=== PATIENT | female | born 1930 | race Caucasian/White ===

== ENCOUNTER → 2017-01-25 | Outpatient (CLI) | payer BC ==
[~2017-01-25] MED LIST: CALCTAB5 PO; CHOL100027 PO; LATA0.009 OPL; MONT1TAB3 PO; MULTTAB58 PO
--- NOTE | 2017-01-25 13:32 | MAMMOGRAPHY REPORT ---
BILATERAL DIGITAL SCREENING MAMMOGRAM WITH CAD: 01/25/2017 CLINICAL HISTORY: Routine screening. Patient has no complaints. TECHNIQUE: Bilateral CC and MLO views were obtained. Current study was also evaluated with a Compute r Aided Detection (CAD) system. COMPARISON: Comparison is made to exams dated: 01/23/2016 mammogram, 01/21/2015 mammogram, 01/09/2014 ma mmogram, 01/08/2013 mammogram, 01/06/2012 mammogram, and 11/18/2010 ultrasound - [facility] ter. BREAST COMPOSITION: The tissue of both breasts is heterogeneously dense, which may obscure small mas ses. FINDINGS: The parenchymal pattern is unchanged. There is stable asymmetry in the superior left chris st on the MLO view. There are mild vascular calcifications and a few benign rim calcifications in th e breasts. No developing mass, architectural distortion or cluster of suspicious microcalcifications is seen. IMPRESSION: ACR BI-RADS CATEGORY 2: BENIGN There is no mammographic evidence of malignancy. A 1 year screening mammogram is recommended. The pa tient will receive written notification of the results. Approximately 10% of breast cancers are not detected with mammography. A negative mammographic report should not delay biopsy if a clinically suggestive mass is present. Penny Fairchild M.D. ay/:01/25/2017 12:40:24 Educational Sign Language Interpreter: Lauren SANTANA(R)(M), [facility] letter sent: Normal 1/2 BI-RADS Code: ACR BI-RADS Category 2: Benign
== END | disposition home or self-care (01) ==
LOC: C.MAMM 09:25
PROVIDERS: ATTEND Obstetrics & Gynecology
DX: Z12.31 Encounter for screening mammogram for malignant neoplasm of breast (principal)

== ENCOUNTER → 2018-01-26 | Outpatient (CLI) | payer BC ==
--- NOTE | 2018-01-26 16:00 | MAMMOGRAPHY REPORT ---
BILATERAL DIGITAL SCREENING MAMMOGRAM TOMOSYNTHESIS WITH CAD: 01/26/2018 CLINICAL HISTORY: Routine screening. The patient has no current complaints. TECHNIQUE: The study was acquired using full field digital technology and interpreted from soft copy. Breast tomosynthesis in addition to standard 2D mammography was performed. Current study was also ev aluated with a Computer Aided Detection (CAD) system. COMPARISON: Comparison is made to exams dated: 01/25/2017 mammogram, 01/23/2016 mammogram, 01/21/2015 m ammogram, 01/09/2014 mammogram, 01/08/2013 mammogram, and 01/06/2012 mammogram - [facility] er. BREAST COMPOSITION: The tissue of both breasts is heterogeneously dense, which may obscure small mass es. FINDINGS: No suspicious masses, calcifications, or areas of architectural distortion are noted in either breast . There has been no significant interval change compared to prior exams. Scattered bilateral benign-a ppearing calcifications are not significantly changed. IMPRESSION: ACR BI-RADS CATEGORY 2: BENIGN There is no mammographic evidence of malignancy. A 1 year screening mammogram is recommended.( 019) The patient will receive written notification of the results. Some breast cancers are not detected with mammography. A negative mammographic report should not fernando y biopsy if a clinically suggestive mass is present. Priyanka Dumont M.D. ah/:01/26/2018 14:52:08 Sample Builder: RT Osvaldo(Buffy)(M), [facility] letter sent: Normal 1/2 BI-RADS Code: ACR BI-RADS Category 2: Benign
== END | disposition home or self-care (01) ==
LOC: C.MAMM 11:07
PROVIDERS: ATTEND Obstetrics & Gynecology
DX: Z12.31 Encounter for screening mammogram for malignant neoplasm of breast (principal)

== ENCOUNTER 2019-07-11 08:52 | Observation (INO) ==
[2019-07-11] MEDS ORDERED: SODIUM CHLORIDE 0.9% 1000ML 1,000 ML IV SCH (09:30)
[2019-07-11 09:53] LABS: Basophils # (auto) 0.02 K/uL (0-0.2); Basophils % (auto) 0.2 %; Eosinophils # (auto) 0.07 K/uL (0-0.5); Eosinophils % (auto) 0.8 %; Hematocrit (blood only) 40.7 % (37-47); Hemoglobin 13.1 g/dL (12.0-16.0); Immature Granulocytes # (auto) 0.03 K/uL (0.00-0.02); Immature Granulocytes % (auto) 0.3 %; Lymphocytes # (auto) 0.83 K/uL (1.2-3.4); Lymphocytes % (auto) 9.3 %; Mean Corpuscular Hemoglobin 29.9 pg (25-34); Mean Corpuscular Hgb Conc 32.2 g/dL (32-36); Mean Corpuscular Volume 92.9 fL (80-100); Mean Platelet Volume 10.3 fL (7.4-10.4); Monocytes # (auto) 0.92 K/uL (0.11-0.59); Monocytes % (auto) 10.3 %; Neutrophils % (auto) 79.1 %; Platelet Count 193 K/uL (130-400); RDW Coefficient of Variation 13.5 % (11.5-14.5); RDW Standard Deviation 46.2 fL (36.4-46.3); Red Blood Count 4.38 M/uL (4.2-5.4); White Blood Count 8.97 K/uL (4.8-10.8)
--- NOTE | 2019-07-11 10:01 | XRay Report ---
XR chest 1V portable CLINICAL HISTORY: 88 years-old Female presenting with weakness. TECHNIQUE: Portable upright AP view of the chest was obtained. COMPARISON: 07/06/2019. FINDINGS: Implanted device projects over the cardiac silhouette. Atherosclerosis of the aortic arch. Cardiac si lhouette borderline enlarged. Trace left pleural effusion and left basilar opacity. No pneumothorax. Fractures of the left seventh through 10th ribs are not as well appreciated on this radiograph. Osteo penia may be present. Upper abdomen normal. IMPRESSION: 1. Left basilar atelectasis and trace left effusion suspected. 2. Underlying left rib fractures better demonstrated on prior rib series. ACT 112: Negative or not required by law. Electronically signed by: Brent Sinclair M.D. 07/11/2019 10:00 AM
[2019-07-11 10:11] LABS: Albumin Level 3.3 gm/dl (3.4-5.0); Calcium 9.2 mg/dl (8.5-10.1); Creatinine Clr Calc Pharmacy 34.3 ml/min; Est GFR (African American) 55.2; Est GFR (Non-African American) 47.6; Potassium 4.3 mmol/L (3.5-5.1)
[2019-07-11 10:21] LABS: Albumin Globulin Ratio 0.9 (0.9-2); Bilirubin,Total 0.5 mg/dl (0.2-1); Globulin 3.5 gm/dl (2.5-4.0); Thyroid Stimulating Hormone 4.18 uIu/ml (0.300-4.500); Total Protein 6.8 gm/dl (6.4-8.2)
--- NOTE | 2019-07-11 10:24 | Electrocardiogram Report ---
Test Reason : Blood Pressure : / mmHG Vent. Rate : 066 BPM Atrial Rate : 066 BPM P-R Int : 234 ms QRS Dur : 118 ms QT Int : 436 ms P-R-T Axes : 079 -41 095 degrees QTc Int : 457 ms Sinus rhythm with 1st degree A-V block with frequent Premature ventricular complexes Possible Left atrial enlargement Left axis deviation Possible Anterior infarct , age undetermined Abnormal ECG No previous ECGs available Confirmed by Tod Samuels ([id number]) on 07/11/2019 10:24:24 AM Referred By: REFERRED SELF Confirmed By:Tod Samuels
[2019-07-11] MEDS ORDERED: SODIUM CHLORIDE 0.9% 1000ML 500 ML IV ONE (10:40)
[2019-07-11] MEDS ORDERED: cefTRIAXone SODIUM 2,000 MG/70 ML BAG IV STA (11:45)
[2019-07-11 11:50] LABS: Appearance Urine Clear (Clear); Bilirubin Urine Negative (Negative); Blood Urine Negative (Negative); Color Urine Yellow; Glucose Urine UA Negative (Negative); Ketones Urine Negative (Negative); Leukocyte Esterase Urine Negative (Negative); Nitrite Urine Negative (Negative); Protein Urine Negative (Negative); Specific Gravity Urine 1.009 (1.000-1.030); Urobilinogen Urine Negative (Negative)
--- NOTE | 2019-07-11 14:24 | Emergency Department Note ---
Entered by Miguel Arias acting as a scribe for Quentin Olivares MD History of Present Illness General Chief complaint: Syncope (Near Syncope) Source: patient History of Present Illness Provider complaint: Near syncope Onset (ago): hour(s) (Just prior to arrival) Location: head Pain Consistency: + other (Episode) Maximum Pain Intensity: 0 Relieved By: + none Associated symptoms: + denies other symptoms (LOC) and + other (Lightheadedness, Dizzy) The patient is an 88 year old female who presents to the Emergency Room after having a near syncopal episode earlier this morning shortly before arrival. The patient reports that she was in the ED about 5 days ago with a rib fracture due to a fall and was prescribed Tylenol #3. The patient states she took 3 of the Tylenol today and about an hour later she started feeling lightheaded and dizzy. The patient adds that her helped her down into her chair so she never fell. The patient was still uneasy in the chair and when EMS arrived her blood pressure was 69/34 with a pulse in the 50s. Currently the patient states she is no longer lightheaded or dizzy. The patient also mentioned that she had a loop recorder placed recently, but left it home. Home Medications Home Medications Medication Instructions Recorded Confirmed Type metoprolol succinate 37.5 mg PO QAM 07/05/19 07/11/19 History acetaminophen-codeine 1 tab PO TID PRN #28 tab 07/06/19 07/11/19 Rx [Tylenol-Codeine #3] bimatoprost [Lumigan] 1 drp OPB HS 07/06/19 07/11/19 History Allergies Allergy/AdvReac Type Severity Reaction Status Date / Time No Known Allergies Allergy Unverified 07/11/19 09:56 Past Med/Surg History Medical History Acute right eye pain Fracture of rib (Acute) Family History Other Family history non-contributory Social History Preferred Language: Nepali Communication Ability: Effective Assistant Director Of Residence Life Required: No Beliefs That Will Affect Care: None Current Living Situation: Spouse Feels Safe at Home: Yes Smoking Status: Former smoker Second Hand Exposure: No ; Hx Alcohol Use: Yes Hx Substance Use: No Review of Systems See HPI for pertinent positives & negatives. and A total of 10 systems reviewed and were otherwise negative Physical Exam Vital Signs Vital Signs - 24 hr 07/11/19 11:28 07/11/19 12:08 07/11/19 14:02 Pulse Rate - Lying 76 Pulse Rate - Sitting 78 Pulse Rate [Apical] 72 76 Respiratory Rate 16 16 Blood Pressure - Lying 113/65 Blood Pressure - Sitting 149/70 H Blood Pressure [Right Arm] 136/75 148/40 H Blood Pressure Mean [Right Arm] 95 76 Pulse Oximetry 97 97 GENERAL: Awake, alert, well-appearing, in no distress HENT: Normocephalic, atraumatic. Oropharynx unremarkable. EYES: Normal conjunctiva. Sclera non-icteric. NECK: Supple. No nuchal rigidity. FROM. No masses. RESPIRATORY: Clear to auscultation. No wheezes. No rales. Normal respiratory effort. CARDIAC: Normal rate. Normal rhythm. No murmurs. No rubs. Extremities warm and well perfused. Pulses equal. No JVD. GI: Soft, non-distended. No tenderness to palpation. No rebound or guarding. No masses. RECTAL: Deferred. MUSCULOSKELETAL: Atraumatic. Chest examination reveals no tenderness. The back is symmetrical on inspection without obvious abnormality. There is no CVA tenderness to palpation. No joint edema. LOWER EXTREMITIES: Calves are equal size bilaterally and non-tender. No edema. No discoloration. NEURO: Normal sensorium. No sensory or motor deficits noted. Course Course 0900: Past medical records reviewed. The patient was evaluated in room A04B, and a complete history and physical examination were performed. 1020: I reevaluated the patient and she is resting in bed. The patient's family member went home to get the loop recorder and it has been sent to [employer] for interrogation. 1206: I spoke to Dr. Olvera [facility] Hospitalist about the patient's case and she has agreed to accept her for further evaluation. Consultations Consultation #1: I spoke to Dr. Wade Prince [facility] Hospitalist about the patient's case and she has agreed to accept her for further evaluation. Time: 12:06 Administered Medications Acetaminophen/Codeine Phosphate (Tylenol W/Codeine #3) 1 tab PO TID PRN PRN Reason: pain Stop: 08/10/19 16:03 Last Admin: 07/11/19 20:21 Dose: 1 tab Documented by: [id number] Bimatoprost (Lumigan 0.01%) 1 drops OPB HS [facility] Stop: 08/10/19 20:59 Last Admin: 07/11/19 20:17 Dose: 1 drops Documented by: [id number] Metoprolol Succinate (Toprol Xl) 37.5 mg PO QAM BLAINE Stop: 08/11/19 08:59 Last Admin: 07/12/19 07:39 Dose: 37.5 mg Documented by: [id number] Discontinued Medications Sodium Chloride (Nss 1000ml) 1,000 mls @ 999 mls/hr IV .Q1H1M BLAINE Stop: 07/11/19 10:30 Last Infusion: 07/11/19 11:07 Dose: 0 mls/hr Documented by: [id number] Admin: 07/11/19 10:06 Dose: 999 mls/hr Documented by: [id number] Sodium Chloride (Nss 1000ml) 500 mls @ 999 mls/hr IV .Q31M ONE Stop: 07/11/19 11:10 Last Infusion: 07/11/19 11:52 Dose: 0 mls/hr Documented by: [id number] Admin: 07/11/19 11:23 Dose: 999 mls/hr Documented by: [id number] Ceftriaxone Sodium (Rocephin) 2,000 mg in 70 mls @ 140 mls/hr IV NOW STA Stop: 07/11/19 12:14 Last Infusion: 07/11/19 12:20 Dose: 0 mls/hr Documented by: [id number] Admin: 07/11/19 11:52 Dose: 140 mls/hr Documented by: [id number] Medical Decision Making Differential Diagnosis Differential diagnosis includes etiologies such as vasovagal event, infection, hypoglycemia, electrolyte abnormalities, cardiac sources, intracerebral event, toxicologic, neurologic, as well as others were entertained. Medical Records Attestation: I reviewed the patient's medical records. Home Medications Current Medication List: was personally reviewed by me Laboratory Data Attestation: I reviewed the patient's lab results. Result diagrams: 07/12/19 07:21 07/12/19 07:21 Lab Results 07/11/19 07/11/19 07/11/19 Range/Units 09:39 09:39 09:39 WBC 8.97 (4.8-10.8) K/uL RBC 4.38 (4.2-5.4) M/uL Hgb 13.1 (12.0-16.0) g/dL Hct 40.7 (37-47) % MCV 92.9 (80-100) fL MCH 29.9 (25-34) pg MCHC 32.2 (32-36) g/dL RDW Std Deviation 46.2 (36.4-46.3) fL RDW Coeff of Rafaela 13.5 (11.5-14.5) % Plt Count 193 (130-400) K/uL MPV 10.3 (7.4-10.4) fL Immature Gran % (Auto) 0.3 % Neut % (Auto) 79.1 % Lymph % (Auto) 9.3 % [place] % (Auto) 10.3 % Eos % (Auto) 0.8 % Baso % (Auto) 0.2 % Immature Gran # (Auto) 0.03 H (0.00-0.02) K/uL Neut # (Auto) 7.10 H (1.4-6.5) K/uL Lymph # (Auto) 0.83 L (1.2-3.4) K/uL [place] # (Auto) 0.92 H (0.11-0.59) K/uL Eos # (Auto) 0.07 (0-0.5) K/uL Baso # (Auto) 0.02 (0-0.2) K/uL Sodium 138 (136-145) mmol/L Potassium 4.3 (3.5-5.1) mmol/L Chloride 105 (98-107) mmol/L Carbon Dioxide 28 (21-32) mmol/L Anion Gap 5.0 (3-11) BUN 21 H (7-18) mg/dl Creatinine 1.04 (0.6-1.2) mg/dl Est Cr Clr Drug Dosing 34.3 ml/min Est GFR ( Amer) 55.2 Est GFR (Non-Af Amer) 47.6 BUN/Creatinine Ratio 20.0 (10-20) Glucose 110 H (70-99) mg/dl Calcium 9.2 (8.5-10.1) mg/dl Total Bilirubin 0.5 (0.2-1) mg/dl AST 14 L (15-37) U/L ALT 17 (12-78) U/L Alkaline Phosphatase 65 (45-117) U/L Total Creatine Kinase 46 (26-192) U/L Troponin I < 0.015 (0-0.045) ng/ml NT-Pro-B Natriuret Pep (0-1800) pg/ml Total Protein 6.8 (6.4-8.2) gm/dl Albumin 3.3 L (3.4-5.0) gm/dl Globulin 3.5 (2.5-4.0) gm/dl Albumin/Globulin Ratio 0.9 (0.9-2) TSH 4.180 (0.300-4.500) uIu/ml Urine Color Urine Appearance (Clear) Urine pH (4.5-7.5) Ur Specific [place] (1.000-1.030) Urine Protein (Negative) Urine Glucose (UA) (Negative) Urine Ketones (Negative) Urine Blood (Negative) Urine Nitrite (Negative) Urine Bilirubin (Negative) Urine Urobilinogen (Negative) Ur Leukocyte Esterase (Negative) 07/11/19 07/11/19 Range/Units 09:39 11:42 WBC (4.8-10.8) K/uL RBC (4.2-5.4) M/uL Hgb (12.0-16.0) g/dL Hct (37-47) % MCV (80-100) fL MCH (25-34) pg MCHC (32-36) g/dL RDW Std Deviation (36.4-46.3) fL RDW Coeff of Rafaela (11.5-14.5) % Plt Count (130-400) K/uL MPV (7.4-10.4) fL Immature Gran % (Auto) % Neut % (Auto) % Lymph % (Auto) % [place] % (Auto) % Eos % (Auto) % Baso % (Auto) % Immature Gran # (Auto) (0.00-0.02) K/uL Neut # (Auto) (1.4-6.5) K/uL Lymph # (Auto) (1.2-3.4) K/uL [place] # (Auto) (0.11-0.59) K/uL Eos # (Auto) (0-0.5) K/uL Baso # (Auto) (0-0.2) K/uL Sodium (136-145) mmol/L Potassium (3.5-5.1) mmol/L Chloride (98-107) mmol/L Carbon Dioxide (21-32) mmol/L Anion Gap (3-11) BUN (7-18) mg/dl Creatinine (0.6-1.2) mg/dl Est Cr Clr Drug Dosing ml/min Est GFR ( Amer) Est GFR (Non-Af Amer) BUN/Creatinine Ratio (10-20) Glucose (70-99) mg/dl Calcium (8.5-10.1) mg/dl Total Bilirubin (0.2-1) mg/dl AST (15-37) U/L ALT (12-78) U/L Alkaline Phosphatase (45-117) U/L Total Creatine Kinase (26-192) U/L Troponin I (0-0.045) ng/ml NT-Pro-B Natriuret Pep 396 (0-1800) pg/ml Total Protein (6.4-8.2) gm/dl Albumin (3.4-5.0) gm/dl Globulin (2.5-4.0) gm/dl Albumin/Globulin Ratio (0.9-2) TSH (0.300-4.500) uIu/ml Urine Color Yellow Urine Appearance Clear (Clear) Urine pH 7.0 (4.5-7.5) Ur Specific [place] 1.009 (1.000-1.030) Urine Protein Negative (Negative) Urine Glucose (UA) Negative (Negative) Urine Ketones Negative (Negative) Urine Blood Negative (Negative) Urine Nitrite Negative (Negative) Urine Bilirubin Negative (Negative) Urine Urobilinogen Negative (Negative) Ur Leukocyte Esterase Negative (Negative) Imaging Data Radiologist's Impression: Radiology results as stated below per my review and the radiologist's interpretation: XR chest 1V portable CLINICAL HISTORY: 88 years-old Female presenting with weakness. TECHNIQUE: Portable upright AP view of the chest was obtained. COMPARISON: 07/06/2019. FINDINGS: Implanted device projects over the cardiac silhouette. Atherosclerosis of the aortic arch. Cardiac silhouette borderline enlarged. Trace left pleural effusion and left basilar opacity. No pneumothorax. Fractures of the left seventh through 10th ribs are not as well appreciated on this radiograph. Osteopenia may be present. Upper abdomen normal. IMPRESSION: 1. Left basilar atelectasis and trace left effusion suspected. 2. Underlying left rib fractures better demonstrated on prior rib series. ACT 112: Negative or not required by law. Electronically signed by: Brent Sinclair M.D. 07/11/2019 10:00 AM ECG Data Attestation: I personally reviewed and interpreted this ECG as follows: Indication: + syncope Rate (beats per minute): 66 Rhythm: + sinus rhythm ECG Intervals/blocks: + First degree AV block and + Normal QT-c (457) ECG Big[place]: + Left axis deviation ECG ST segments: no ST depression and no ST elevation ECG Findings: + PVCs (Frequent) Blood Pressure Blood Pressure Findings: Low blood pressure Blood Pressure Disposition: further management by hospitalist MDM Narrative This is an 88-year-old female who presents emergency department with a syncopal episode. The patient is wearing a Holter monitor to try and get to the bottom of why the patient continues to have syncopal episodes. I will note that this is the patient's second fall in a week. I am concerned that she is going to hurt herself more. For this reason I did discuss this with the patient's family who are asking that the patient be admitted. I did discuss the case with the hospitalist service who agreed admit the patient. I will note that the patient does not have an elevation in her white blood cell count has a normal EKG normal troponin. Patient was given fluid bolus here in the emergency department. Patient family were in agreement with the treatment plan. Impression & Plan Episode of syncope Discharge Plan Visit Data *Final* Discharge Date/Time: 07/11/19 14:44 Chief Complaint: Syncope (Near Syncope) ED Provider: Quentin Olivares Discharge Problem: Episode of syncope Patient Disposition: Admitted As Inpatient Discharge Instructions Interventions: ED Discharge Assessment Last Done: 07/11/19 14:44 Discharge Problem: Episode of syncope Qualifiers: Syncope type: unspecified Qualified Code(s): R55 - Syncope and collapse The scribe's documentation has been prepared under my direction and personally reviewed by me in its entirety. I confirm that the note above accurately reflects all work, treatment, procedures, and medical decision making performed by me.
--- NOTE | 2019-07-11 14:31 | History & Physical Report ---
Date of Service July 11, 2019 Assessment & Plan (1) Near syncope: Admit to PCU on telemetry for observation Vital signs every 4 hours [employer] report pending in regard of loop recorder events Consult cardiology Monitor electrolytes and replenish DVT prophylaxis teds and SCDs salmon calcitonin intranasal Physical and Occupational Therapy Full code Present on Admission?: Yes (2) Hypertension: Continue telemetry .Continue home meds-metoprolol 37.5 mg p.o. every morning. Present on Admission?: Yes (3) Hyperlipidemia: Lipid panel pending Present on Admission?: Yes (4) Fracture of rib: Continue pain management with salmon calcitonin. Continue monitoring. No intervention necessary at this time Present on Admission?: Yes History of Present Illness Chief Complaint: Dizziness , near syncopal episode Primary Care Provider: Ronnie Stapleton Patient is a hypertension, hyperlipidemia who presents to the emergency room s/p fall this morning and a week ago. At that episode patient broke several of her ribs on the left side. This morning she felt dizzy again but her was next to her and he prevented her fall. Patient has a loop recorder placed last and we are waiting for from [employer] underwriting account representative report about her loop recorder events. 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 She lives with her on the second floor and her daughter and son-in-law are in the same building on the third floor. Her daughter is retired and she takes care of her 24/01. Family is aware that her mother is losing capacity to take care of herself but at this point of time day prefer she stays at home with her daughter and who is elderly as well. Patient is poor historian and most of the time she goes of the focus. Review of system is negative for fever chills, chest pain, shortness of breath, frequency, urgency, abdominal pain, melena, hematochezia. Patient sees Dr. Nolen pharmacy informatics specialist and believe loop recorder is placed by Dr. Reid last . EKG reviewed and shows normal sinus rhythm with first-degree AV block and frequent PVCs left bundle branch block. Labs are reviewed WBC is 8.97, hemoglobin 13.1, hematocrit 40.7, platelets 193. Sodium of 138, potassium 4.3, chloride 105, BUN 21, creatinine 1.04, GFR 47.6, AST 14, ALT 17, troponin 0 0.015, TSH 4.18. Urine all normal. Chest x-ray showed left basilar atelectasis and trace left effusion suspected. Underlining left rib fracture better demonstrated on the prior rib series. Fracture of the left seventh through 10th ribs are not well appreciated at this radiograph. Osteopenia present. Prior to this patient had pelvis x-rays and CT of the head July 06, 2019 which were all negative for acute findings. Decision was made to admit patient to PCU on telemetry for observation and work- up of syncope. Allergies Allergy/AdvReac Type Severity Reaction Status Date / Time No Known Allergies Allergy Unverified 07/11/19 09:56 Home Medications Home Medications Medication Instructions Recorded Confirmed Type metoprolol succinate 37.5 mg PO QAM 07/05/19 07/11/19 History acetaminophen-codeine 1 tab PO TID PRN #28 tab 07/06/19 07/11/19 Rx [Tylenol-Codeine #3] bimatoprost [Lumigan] 1 drp OPB HS 07/06/19 07/11/19 History Past Med/Surg History Medical History Acute right eye pain Fracture of rib (Acute) Family History Other Family history non-contributory Social History Preferred Language: Hungarian Communication Ability: Effective Communication Ability Comment: history of dementia Deputy Controller Required: No Beliefs That Will Affect Care: None Current Living Situation: Spouse Other Information That Helps Us Care for You: No Feels Safe at Home: Yes Safety Concerns: Feels Safe At This Time Smoking Status: Former smoker Do You Dip or Chew Tobacco: No ; Second Hand Exposure: No ; Tobacco Cessation Education Requested by Patient: No Hx Alcohol Use: Yes Hx Substance Use: No Review of Systems Review of Systems: All systems reviewed & are unremarkable except as noted in HPI & below Physical Exam Constitutional: WD/WN, vitals as above well developed Eyes: PERRL, conjunctivae normal, anicteric sclerae ENMT: external ear and nose normal, oropharynx normal Neck: trachea midline, no thyromegaly Respiratory: normal respiratory effort, lungs clear to auscultation Cardiovascular: RRR, no murmur, no edema Gastrointestinal (Abdomen): normal bowel sounds, soft, nontender, no hepatosplenomegaly Musculoskeletal: no cyanosis or clubbing, extremities motor strength 5/5 Skin: no rashes, warm and dry Neurologic: patellar DTR's 2+ bilat, sensation intact Psychiatric: A+Ox3, euthymic affect Lymphatic: no cervical or axillary lymphadenopathy Results & Data Vital Signs (Past 12 Hours) Vital Signs Temp Pulse Pulse Resp BP BP Pulse Ox 07/11/19 14:02 76 16 148/40 H 97 07/11/19 12:08 72 16 136/75 97 07/11/19 10:07 69 16 127/56 L 94 07/11/19 09:03 94 07/11/19 09:00 96 07/11/19 08:45 36.6 C 70 24 125/64 94 Code Status & VTE Plan Code Status Full code VTE Prophylaxis Plan VTE Prophylaxis will be ordered: Yes PG Care Time/CCT Total # of Minutes Spent Total Time Spent with Patient: Total time spent is greater than 50% in coordination of care (as documented) at patient's floor/unit and/or counseling patient: (1) Fracture of rib Encounter type: initial encounter Fracture type: closed Laterality: left Rib fracture type: multiple ribs Qualified Code(s): S22.42XA - Multiple fractures of ribs, left side, initial encounter for closed fracture
[2019-07-11] MEDS ORDERED: ACETAMINOPHEN W/CODEINE #3 1 TAB PO PRN (16:04)
[2019-07-11] MEDS ORDERED: ALUMINUM/MAGNESIUM SUSP 30 ML UDC PO PRN (16:04)
[2019-07-11] MEDS ORDERED: POLYETHYLENE (MIRALAX) 17 GM PACK PO PRN (16:04)
[2019-07-11] MEDS ORDERED: MAGNESIUM HYDROXIDE SUSP 30 ML UDC PO PRN (16:04)
[2019-07-11] MEDS ORDERED: ACETAMINOPHEN 325 MG TAB PO PRN (16:04)
[2019-07-11] MEDS ORDERED: BIMATOPROST 0.01% OP SOLN 2.5 ML BTL OPB SCH (21:00)
[2019-07-11] MEDS ORDERED: INFLUENZA VACCINE HIGH DOSE 65+ 0.5 ML SYR IM ONE (21:00)
[2019-07-11] MEDS ORDERED: PNEUMOCOCCAL POLYSACCHARIDES 25 MCG/0.5 ML VIAL/SYR IM ONE (21:00)
[2019-07-11] MEDS ORDERED: INFLUENZA ADMINISTRATION CHARGE ONE (21:00)
[2019-07-11] MEDS ORDERED: PNEUMOCOCCAL ADMINISTRATION CHARGE ONE (21:00)
[2019-07-12 07:35] LABS: Basophils # (auto) 0.03 K/uL (0-0.2); Basophils % (auto) 0.4 %; Eosinophils # (auto) 0.07 K/uL (0-0.5); Eosinophils % (auto) 0.9 %; Hematocrit (blood only) 37.7 % (37-47); Hemoglobin 12.4 g/dL (12.0-16.0); Immature Granulocytes # (auto) 0.02 K/uL (0.00-0.02); Immature Granulocytes % (auto) 0.3 %; Lymphocytes % (auto) 15.4 %; Mean Corpuscular Hemoglobin 29.4 pg (25-34); Mean Corpuscular Hgb Conc 32.9 g/dL (32-36); Mean Corpuscular Volume 89.3 fL (80-100); Mean Platelet Volume 10.2 fL (7.4-10.4); Monocytes # (auto) 0.89 K/uL (0.11-0.59); Monocytes % (auto) 11.4 %; Neutrophils # (auto) 5.58 K/uL (1.4-6.5); Neutrophils % (auto) 71.6 %; Platelet Count 170 K/uL (130-400); RDW Coefficient of Variation 13.5 % (11.5-14.5); RDW Standard Deviation 44.5 fL (36.4-46.3); Red Blood Count 4.22 M/uL (4.2-5.4); White Blood Count 7.79 K/uL (4.8-10.8)
[2019-07-12 08:13] LABS: BUN Creatinine Ratio 22.2 (10-20); Calcium 8.7 mg/dl (8.5-10.1); Creatinine Clr Calc Pharmacy 48.9 ml/min; Est GFR (African American) 84.6; Potassium 3.9 mmol/L (3.5-5.1)
[2019-07-12 08:25] LABS: Albumin Globulin Ratio 0.9 (0.9-2); Bilirubin,Total 0.5 mg/dl (0.2-1); Globulin 3.3 gm/dl (2.5-4.0); Total Protein 6.3 gm/dl (6.4-8.2)
[2019-07-12] MEDS ORDERED: METOPROLOL SUCC 25MG EXT REL TAB PO SCH (09:00)
--- NOTE | 2019-07-12 10:05 | Cardiology Consultation ---
Date of Consultation She presented to the emergency room after an episode of lightheadedness dizziness and presyncope. The day after her loop recorder was placed she actually had a fall at home her family describes it as a fall the not sure if she tripped but there was no loss of consciousness. She did have rib fractures and was placed on Tylenol 3. They believe that she had not been drinking very much in the way of liquids. She then took her Toprol-XL along with her Tylenol 3 and they think she took 2 Tylenol threes. She then became clammy and cold she had some mild tremors her helped her sit so that she did not fall and hurt herself. At no time did she feel palpitations. Nor did she have any chest pain chest pressure or shortness of breath. They called 911 she came to emergency room her EKG revealed sinus rhythm with left bundle branch block and PVCs which is her baseline. Her dementia seems to be worsening. She denies any orthostatic symptoms. She is a poor historian and the history is obtained from her son and her . The rest of a complete review of systems otherwise negative July 12, 2019 History of Present Illness Attending Physician: Dami Garrido Allergies Allergy/AdvReac Type Severity Reaction Status Date / Time No Known Allergies Allergy Unverified 07/11/19 09:56 Home Medications Home Medications Medication Instructions Recorded Confirmed Type metoprolol succinate 37.5 mg PO QAM 07/05/19 07/11/19 History acetaminophen-codeine 1 tab PO TID PRN #28 tab 07/06/19 07/11/19 Rx [Tylenol-Codeine #3] bimatoprost [Lumigan] 1 drp OPB HS 07/06/19 07/11/19 History Patient History Medical History Acute right eye pain Fracture of rib (Acute) Family History Other Family history non-contributory Social History Preferred Language: Egyptian Communication Ability: Effective Net Software Developer Required: No Beliefs That Will Affect Care: None Current Living Situation: Spouse Feels Safe at Home: Yes Smoking Status: Former smoker Second Hand Exposure: No ; Hx Alcohol Use: Yes Hx Substance Use: No Results & Data Vital Signs (Past 12 Hours) Vital Signs Temp Pulse Pulse Pulse Resp BP Pulse Ox 07/12/19 06:39 36.2 C L 97 H 20 165/77 H 94 07/12/19 03:37 36.7 C 75 19 145/74 H 94 07/12/19 01:24 164/63 H 07/12/19 00:43 36.7 C 99 H 20 95 07/12/19 00:01 89 She is awake alert she is easily confused. She is a poor historian. HEENT 2+ carotid upstroke stones carotid bruits Lungs: Clear to auscultation bilaterally no rales rhonchi or wheezing Heart regular rate and rhythm with occasional ectopy no appreciable murmurs rubs or gallops Abdomen: Soft nontender distended positive bowel sounds Extremities no clubbing cyanosis or edema Impressions: 1. Recurrent presyncopal episodes 2. Recent implantable loop recorder with no evidence of pauses or tachyarrhythmias she does have PVCs occasionally in a bigeminal pattern 3. Nothing to suggest seizure activity 4. Possible autonomic dysfunction 5. Left bundle branch block At this point there is nothing on her monitor to suggest that this is an arrhythmic event. I do wonder if she has some degree of autonomic dysfunction. I would reduce her Toprol from 37-1/2 mg a day to 25 mg a day to try to allow her blood pressure to come. I would except some degree of hypertension in order to avoid a drop in her blood pressure with activity. We will continue to follow her loop and she will follow in device clinic. I do not think this represents seizure activity either. I would ambulate her in the hallway to make sure she is ambulating well she is due to have a PT consult today. From my standpoint she can be discharged home. I also reviewed the residential monitor here which does not reveal any pauses or tachyarrhythmias.
[2019-07-12 12:08] LABS: Influenza A virus by PCR Neg for Influ A (Neg); Influenza B virus by PCR Neg for Influ B (Neg)
[2019-07-12] MEDS ORDERED: LIDOCAINE 5% 1 PATCH TD SCH (14:30)
--- NOTE | 2019-07-12 15:38 | Discharge Summary ---
Date of Service July 12, 2019 Admission HPI Per Admitting Provider Patient is an 88yo female with history of hypertension and hyperlipidemia who presents to the emergency room s/p fall this morning and a week ago. At that episode patient broke several of her ribs on the left side. This morning she felt dizzy again but her was next to her and he prevented her fall. Patient has a loop recorder placed last and we are waiting for from [employer] unit support representative report about her loop recorder events. 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 She lives with her on the second floor and her daughter and son-in-law are in the same building on the third floor. Her daughter is retired and she takes care of her 24/01. Family is aware that her mother is losing capacity to take care of herself but at this point of time day prefer she stays at home with her daughter and who is elderly as well. Patient is poor historian and most of the time she goes of the focus. Review of system is negative for fever chills, chest pain, shortness of breath, frequency, urgency, abdominal pain, melena, hematochezia. Patient sees Dr. Nolen immigration paralegal and believe loop recorder is placed by Dr. Reid last . EKG reviewed and shows normal sinus rhythm with first-degree AV block and frequent PVCs left bundle branch block. Labs are reviewed WBC is 8.97, hemoglobin 13.1, hematocrit 40.7, platelets 193. Sodium of 138, potassium 4.3, chloride 105, BUN 21, creatinine 1.04, GFR 47.6, AST 14, ALT 17, troponin 0 0.015, TSH 4.18. Urine all normal. Chest x-ray showed left basilar atelectasis and trace left effusion suspected. Underlining left rib fracture better demonstrated on the prior rib series. Fracture of the left seventh through 10th ribs are not well appreciated at this radiograph. Osteopenia present. Prior to this patient had pelvis x-rays and CT of the head July 06, 2019 which were all negative for acute findings. Decision was made to admit patient to PCU on telemetry for observation and work-up of syncope. Principal Diagnosis near-syncope/syncope - likely due to orthostasis Discharge Exam Constitutional well developed and well nourished; no acute distress ENMT external ear and nose normal, oropharynx normal Respiratory normal respiratory effort, lungs clear to auscultation Cardiovascular Rate/Rhythm: regular rate and regular rhythm Heart Sounds: normal S1 and normal S2; no murmur Vessels: posterior tibial pulses present and dorsalis pedis pulses present; no JVD Extremities: no edema Gastrointestinal (Abdomen) normal bowel sounds, soft, nontender, no hepatosplenomegaly Neurologic moves all extremities; no focal motor deficits Psychiatric Orientation: alert and oriented to person; + not oriented to place and + not oriented to time Discharge Data Allergies Allergy/AdvReac Type Severity Reaction Status Date / Time No Known Allergies Allergy Unverified 07/11/19 09:56 Consultations Cardiology - Dashawn Vigil DO PT, OT Procedures Performed 1. loop recorder interrogation - no arrhythmia seen at time of near-syncopal event or in the recent past. Hospital Course (1) Near syncope: The event was likely due to orthostasis. The family kept excellent recollection & documentation of the sequence of the spell. There was prodromal symptoms (she complained of feeling dizzy), she was sweaty and pale, and her [id number] astutely checked her BP finding a very low value (systolic in the 70s or 80s). She did not have seizure activity. She never had focal motor weakness or other stroke-like symptoms. Again loop recorder interrogation did not find any arrhythmia. During her stay her telemetry was normal. The patient likely had mild volume contraction as her presenting Cr was 1, improving to 0.7 with gentle fluids. She was seen in consult by Dr Dashawn Vigil from [facility] cardiology who agreed that the event was likely orthostasis in etiology. He recommended decreasing her toprol xl to 25mg daily (from 37.5mg daily). In addition to the above the family reported she had taken a pain medication about 1 hour prior to the spell. The pain medication was for her broken rib pain. I cannot rule out that some of her orthostasis was from pain medication usage. Of note - during ER visit on 07/06/[address] head and CT cervical spine were without acute fracture or other pathology. At discharge she was cleared by PT/OT to return home with her . (2) Hypertension: As noted above her metoprolol xl was decreased from 37.5 mg p.o. every morning to 25mg daily. This was recommended by cardiology. (3) Hyperlipidemia: Lipid panel showed LDL of 90. (4) Fracture of rib: Due to prior fall on 07/06/2019. She fractured ribs #7-10 on the left side at that time. She complained of left-sided rib pain during this stay. She was given lidoderm patches to try. (5) Dementia: Family mentioned that Mrs Westbrook had suffered from dementia for several years. It had been progressive. We briefly discussed the option of assisted living in the future. Fortunately the patient's family lives in the same apartment building as the patient and her . Thus, her family will continue to try and care for her in her current apartment. She will be set up with home PT & OT. (6) Chronic kidney disease, stage 3a: baseline CrCrl is 30-59 Total Time Total Time Spent Total Time Spent (In Minutes): 40 Total Time Includes: Examination of the Patient, Discharge Planning, Medication Reconciliation and Communication With Other Providers Discharge Plan Discharge Items Patient Disposition: Home - Home Health Services Reason For Visit: SYNCOPE (fainting spell); RIB FRACTURES Discharge Diagnosis: 1. fainting spell - due to "orthostasis" (blood pressure dropping when standing up); loop recorder did not reveal any abnormalities. 2. recent left-sided rib fractures. 3. dementia. Activity: As commented below Activity Comment: avoid activities that will aggravate your rib pain Lifting: No more than 10 pounds Exercise/Sports: Wait until after follow-up appointment Non-emergency contact: Primary Care Provider Call non-emergency contact if: you have any medication questions, your symptoms worsen, your pain is not controlled, your pain is worsening, your pain is unusual for you, your pain is concerning for you and you have a fever Follow-up/Referrals: Héctor Mora MD [ED Physician] - 07/18/19 10:30 am (An appointment has been made on your behalf with another provider at your PCP's office. Please call the office with any questions or concerns. ) Diet: Heart Healthy Addtl Attending Provider Instructions: Your fainting spell was likely caused by low blood pressure. Your daughter in law astutely took your blood pressure and it was low at the time of the event. Mild dehydration +/- recent codeine use may have contributed to the low pressure and the event in general. Your loop recorder was checked and did not reveal any abnormal heart rhythms at the time of the event. Dr Vigil from cardiology saw you and advised that we DECREASE your toprol xl to 25mg once daily. Additional recommendations - 1. try to stay well-hydrated day to day 2. use your urine as a guide to your hydration; if it appears concentrated (dark brown/yellow) then you need to increase your water intake 3. try to cut back on the codeine use since it could potentially make you lightheaded; certainly if your rib pain is severe please go ahead and take it 4. try [id number] tylenol as needed for pain (or motrin 400mg every 8 hours as needed) 5. try lidoderm patches - up to 2 patches applied to skin - leave for 12 hours, remove for 12 hours; place at site of pain on ribs 6. LOWER your toprol xl to 25mg once daily (from 37.5mg) 7. use your incentive spirometry every 1-2 hours while awake to prevent pneumonia Follow-up -- see separate section Return to [facility] if -- * you have worsening rib pain * you have fevers over 100.4 degrees * you have recurrent falls, weakness, dizziness, or lightheadedness * you have passing out spells * you have worsening breathing * any other concerns Pending Studies at Discharge: No Stand-Alone Forms: My [facility], Smoking Cessation Medications and DC Order Prescriptions: New lidocaine 5 % Adhesive Patch,Medicated 2 patch transdermal QAM Qty: 60 RF: 0 Continued Lumigan 0.01 % drops 1 drp OPB HS RF: 0 acetaminophen-codeine [Tylenol-Codeine #3] 300-30 mg tablet 1 tab PO TID PRN (Reason: pain) Qty: 28 RF: 0 Changed metoprolol succinate 25 mg Tablet Extended Release 24 Hr 25 mg PO QAM Qty: 30 RF: 0 Discharge Orders: Discharge Order (Routine); Ordered 07/12/19 Ordered By: Dami Garrido Admission Data Admit Date/Time: 07/11/19 14:07 Attending Provider: Dami Garrido Admit Provider: Nani Olvera Primary Care Provider: Ronnie Stapleton Other Providers: Nani Olvera ; Tod Samuels ; [facility] Other Interventions: Discharge Summary Assessment (RN) Last Done: 07/12/19 15:00 DC Date/Time DO NOT enter until pt leaves facility: 07/12/19 16:27
== END 2019-07-12 16:27 | disposition home health service (06) ==
LOC: ED 08:52 → 2S 08:52 → SUATTDRO 14:07 → 2S 14:44